=== PATIENT | male | born 1985 | race Hispanic/Latino ===

== ENCOUNTER 2018-09-24 10:18 | Emergency (ER) | payer OTHER ==
[2018-09-24 10:52] LABS: APPEARANCE,URINE Clear (CLEAR); BILIRUBIN,URINE Negative (NEGATIVE); COLOR,URINE Yellow (YELLOW); GLUCOSE, URINE (UA) Negative (NEGATIVE); KETONES,URINE Negative (NEGATIVE); LEUKOCYTE ESTERASE ,URINE Negative (NEGATIVE); NITRATE,URINE Negative (NEGATIVE); OCCULT BLOOD,URINE Negative (NEGATIVE); PH,URINE 6.5 (5.0-8.0); PROTEIN,URINE Negative (NEGATIVE)
== END 2018-09-24 11:12 | disposition home or self-care (01) ==
LOC: EDH 10:18
DX: B86 Scabies (principal); R30.0 Dysuria
CPT/HCPCS: 81003

== ENCOUNTER 2018-10-05 01:06 | Emergency (ER) | payer OTHER ==
[2018-10-05 02:23] LABS: BASOPHILS % (AUTO) 0.8 % (0.0-5.0); EOSINOPHILS % (AUTO) 0.7 % (0.0-8.0); HEMATOCRIT 42.9 % (42-54); LYMPHOCYTES % (AUTO) 20.6 % (21.0-51.0); MEAN CORPUSCULAR HEMOGLOBIN 30.3 pg (27.0-33.0); MEAN CORPUSCULAR HGB CONC 34.1 g/dL (32.0-36.0); MEAN CORPUSCULAR VOLUME 88.9 fL (79-99); MONOCYTES % (AUTO) 5.2 % (3.0-13.0); NEUTROPHILS % (AUTO) 72.7 % (40.0-77.0); NUCLEATED RED BLOOD CELLS 0.1 % (0.0-0.19); PLATELET COUNT (AUTO) 347 K/uL (130-400); RED BLOOD CELL COUNT(AUTO) 4.82 MIL/uL (4.50-6.20); RED CELL DISTRIBUTION WIDTH 12.2 % (11.0-15.5); WHITE BLOOD COUNT (AUTO) 13.2 K/uL (4.8-10.8)
[2018-10-05 02:33] LABS: POTASSIUM 3.4 mmol/L (3.5-5.1)
[2018-10-05 02:34] LABS: APPEARANCE,URINE Clear (CLEAR); BILIRUBIN,URINE Negative (NEGATIVE); COLOR,URINE Yellow (YELLOW); GLUCOSE, URINE (UA) Negative (NEGATIVE); KETONES,URINE Negative (NEGATIVE); LEUKOCYTE ESTERASE ,URINE Negative (NEGATIVE); NITRATE,URINE Negative (NEGATIVE); OCCULT BLOOD,URINE Negative (NEGATIVE); PROTEIN,URINE Negative (NEGATIVE)
[2018-10-05 02:38] LABS: ALBUMIN 3.7 g/dL (3.5-5.0); BILIRUBIN,TOTAL 0.6 mg/dL (0.2-1.0); TOTAL PROTEIN, SERUM 8.1 g/dL (6.0-8.3)
== END 2018-10-05 05:05 ==
LOC: EDH 01:06
DX: K59.00 Constipation, unspecified (principal); K60.4 Rectal fistula; K60.2 Anal fissure, unspecified
CPT/HCPCS: 36415; 74018; 80053; 81003; 82270; 83690; 85025

== ENCOUNTER 2018-10-16 00:50 | Emergency (ER) | payer OTHER ==
[2018-10-16] MEDS ORDERED: ACETAMINOPHEN EXTRA STRENGTH 500 MG TABLET ONE (01:11)
[2018-10-16] MEDS ORDERED: CYCLOBENZAPRINE HCL 10 MG TABLET ONE ×2 (01:11→01:19)
== END 2018-10-16 01:37 | disposition home or self-care (01) ==
LOC: EDH 00:50
DX: G44.209 Tension-type headache, unspecified, not intractable (principal); M54.5 Low back pain